=== PATIENT | female | born 1980 | race American Indian/Alaskan Native ===

== ENCOUNTER 2018-03-08 01:07 | Emergency (ER) | payer MEDICAID, OTHER ==
[2018-03-08 01:07] VITALS: BMI 32.0
[2018-03-08 01:20] VITALS: RESP 16; TEMP 98.7
--- NOTE | 2018-03-08 04:50 | ED PDOC ---
HPI: Abdomen Time Seen by Provider: 03/08/18 01:20 Chief Complaint (Nursing): Abdominal Pain Chief Complaint (Provider): Abdominal Pain History Per: Patient History/Exam Limitations: no limitations Onset/Duration Of Symptoms: Days Current Symptoms Are (Timing): Still Present Associated Symptoms: denies: Fever, Nausea, Vomiting, Urinary Symptoms Additional Complaint(s): Clarisse Bueno is a 37 year old female with no past medical history who is presenting to the ED with complaints of drainage from the right nipple and has been on clindamycin for mastitis for less than 2 days. Patient also states that she was diagnosed with an umbilical hernia which is currently not bothering her. She denies any fevers, nausea, vomiting, or urinary symptoms. Patient also reports normal stools. PMD: Mayte Alvarez Past Medical History Reviewed: Historical Data, Nursing Documentation, Vital Signs Vital Signs: Last Vital Signs Temp 98.7 F 03/08/18 01:15 Pulse 89 03/08/18 01:15 Resp 16 03/08/18 01:15 BP 130/85 03/08/18 01:15 Pulse Ox 99 03/08/18 04:59 - Medical History PMH: Asthma, Bronchitis - Surgical History Surgical History: - Family History Family History: States: Unknown Family Hx - Social History Current smoker - smoking cessation education provided: Yes Drugs: Other (PCP) - Immunization History Hx Tetanus Toxoid Vaccination: Yes (Past 10 years) Hx Influenza Vaccination: No Hx Pneumococcal Vaccination: No - Home Medications Home Medications: Ambulatory Orders Medication Instructions Recorded Acetaminophen [Tylenol Extra 2 tab PO Q6 #30 tablet 02/27/18 Strength] Cephalexin [cephalexin] 500 mg PO Q6 #28 cap 02/27/18 Ibuprofen [Motrin] 600 mg PO Q6 #30 tab 02/27/18 - Allergies Allergies/Adverse Reactions: Allergies Allergy/AdvReac Type Severity Reaction Status Date / Time No Known Allergies Allergy Verified 02/27/18 13:15 Review of Systems ROS Statement: Except As Marked, All Systems Reviewed And Found Negative Constitutional: Negative for: Fever Gastrointestinal: Negative for: Nausea, Vomiting Genitourinary Female: Positive for: Other (drainage from the right nipple). Negative for: Dysuria, Frequency, Incontinence Physical Exam - Reviewed Nursing Documentation Reviewed: Yes Vital Signs Reviewed: Yes - Physical Exam Appears: Positive for: Well, Non-toxic, No Acute Distress Head Exam: Positive for: ATRAUMATIC, NORMAL INSPECTION, NORMOCEPHALIC Skin: Positive for: Normal Color, Warm, DRY Eye Exam: Positive for: EOMI, Normal appearance, PERRL ENT: Positive for: Normal ENT Inspection Neck: Positive for: Normal, Painless ROM Cardiovascular/Chest: Positive for: Regular Rate, Rhythm, Other (Breast Exam: right breast has mild cellulitis around areola with drainage of puss) Respiratory: Positive for: CNT, Normal Breath Sounds Gastrointestinal/Abdominal: Positive for: Normal Exam, Soft. Negative for: Tenderness, Mass, Guarding, Rebound, Hernia (not palpable) Back: Positive for: Normal Inspection Extremity: Positive for: Normal ROM. Negative for: Deformity Neurologic/Psych: Positive for: Alert, Oriented. Negative for: Motor/Sensory Deficits - ECG O2 Sat by Pulse Oximetry: 99 (RA) Pulse Ox Interpretation: Normal Medical Decision Making Medical Decision Making: Time: 4:48 Female with no past medical history presenting with breast pain and resolved abdominal pain. Explained to patient that it is too soon to assess for treatment failure of clindamycin. Patient also advised to follow up with outpatient general surgery for evaluation of hernia Patient has no signs of strangulation or incarceration. No signs of sepsis with normal vital signs. Patient is very well appearing. Upon provider evaluation, patient is medically stable and requires no further treatment in the ED at this time. She is stable for discharge home with follow ups as advised by provider. Scribe Attestation: Documented by, Annmarie Fournier acting as a scribe for Carlos Hennessy MD. Provider Scribe Attestation: All medical record entries made by the Scribe were at my direction and personally dictated by me. I have reviewed the chart and agree that the record accurately reflects my personal performance of the history, physical exam, medical decision making, and the department course for this patient. I have also personally directed, reviewed, and agree with the discharge instructions and disposition. Disposition - Clinical Impression Clinical Impression: Cellulitis of breast, Umbilical hernia - Patient ED Disposition Is Patient to be Admitted: No - Disposition Referrals: [id number] [Other] Bob Carmona MD [Staff Provider] - Disposition: Routine/Home Disposition Time: 06:18 Condition: STABLE Instructions: Umbilical Hernia, Adult, Cellulitis (Skin Infection), Adult (DC) Forms: [employer]is[employer] (Italian)
[2018-03-08 06:28] VITALS: BP 118/81; PULSE 86; O2SAT 100
== END 2018-03-08 06:28 | disposition home or self-care (01) ==
LOC: H.ER 01:07
DX: N61.0 Mastitis without abscess (principal); K42.9 Umbilical hernia without obstruction or gangrene